=== PATIENT | male | born 1965 | race Caucasian/White ===

== ENCOUNTER 2023-02-03 06:07 | Emergency (ER) | payer MEDICAID ==
[~2023-02-03 06:07] MED LIST: HYDROmorphone 2 MG/ML Syringe IVPUSH ONE
[2023-02-03 06:21] LABS: BASOPHILS ABSOLUTE AUTO 0.05 K/uL (0.02-0.10); BASOPHILS PERCENT AUTO 0.4 % (0.0-0.5); EOSINOPHILS ABSOLUTE AUTO 0.42 K/uL (0.04-0.40); EOSINOPHILS PERCENT AUTO 3.4 % (1.0-5.0); HEMATOCRIT 44.1 % (40.0-54.0); LYMPHOCYTES ABSOLUTE AUTO 4.92 K/uL (1.50-4.00); MEAN CORPUSCULAR VOLUME 91 fL (76-96); MEAN PLATELET VOLUME 10.9 fL (6.0-10.0); MONOCYTES PERCENT AUTO 8.1 % (3.0-10.0); NEUTROPHILS ABSOLUTE AUTO 5.91 K/uL (2.00-7.50); NEUTROPHILS PERCENT AUTO 48.1 % (45.0-70.0); PLATELET COUNT,PLT 284 K/uL (150-400); RED BLOOD CELL COUNT 4.84 M/uL (4.50-6.50); RED CELL DISTRIBUTION WIDTH 14.3 % (11.0-16.0); WHITE BLOOD CELL COUNT,WBC 12.3 K/uL (4.0-11.0)
[2023-02-03] MEDS ORDERED: Sodium Chloride 0.9% 1,000 ML IV ONE (06:23)
[2023-02-03] MEDS ORDERED: Nitroglycerin 0.4 MG Tab.SL SL ONE (06:40)
[2023-02-03 06:50] LABS: INR 0.9 (1.0-3.5); PTT,PARTIAL THROMBOPLSTIN TIME 26.2 SECONDS (24.4-33.2)
[2023-02-03 06:51] LABS: PROTHROMBIN TIME 9.2 sec (9.0-11.5)
[2023-02-03 07:00] LABS: A/G RATIO 0.9 (0.8-2.0); ALBUMIN 3.6 g/dL (3.4-5.0); ANION GAP 15.4 mmol/L (5.0-15.0); BILIRUBIN TOTAL 0.2 mg/dL (0.0-1.0); BUN/CREATININE RATIO 27.5 (6-25); CALCIUM 8.1 mg/dL (8.5-10.1); CARBON DIOXIDE,CO2 22.6 mmol/L (21.0-32.0); CREATININE 0.8 mg/dL (0.70-1.30); EST CRCL DRUG DOSING (CG) 107.2 mL/min; PROTEIN TOTAL,TP 7.4 g/dL (6.4-8.2)
[2023-02-03] MEDS ORDERED: HYDROmorphone 2 MG/ML Syringe IVPUSH ONE (07:23)
[2023-02-03] MEDS ORDERED: Nitroglycerin/D5W 25 MG/250 ML BOTTLE IV SCH (10:00)
== END 2023-02-03 10:17 | disposition left against medical advice (07) ==
LOC: LB.ED 06:07
DX: I21.4 Non-ST elevation (NSTEMI) myocardial infarction (principal)
CPT/HCPCS: 36415; 71045; 80053; 84484; 85025; 85610; 85730; 93005; 96361; 96374; 96376; 99285-25; A0425; A0429; J1170; J7030

== ENCOUNTER 2024-11-26 08:00 | Emergency (ER) | payer MEDICAID ==
[2024-11-26] MEDS ORDERED: Sodium Chloride 0.9% 10 ML Syringe FLUSH PRN (08:10)
[2024-11-26] MEDS: Heparin Sodium 5,000 Units/ML Vial IVPUSH ONE (08:36)
[2024-11-26 08:45] LABS: BASOPHILS ABSOLUTE AUTO 0.03 K/uL (0.02-0.10); BASOPHILS PERCENT AUTO 0.3 % (0.0-0.5); EOSINOPHILS ABSOLUTE AUTO 0.29 K/uL (0.04-0.40); EOSINOPHILS PERCENT AUTO 2.9 % (1.0-5.0); LYMPHOCYTES ABSOLUTE AUTO 4.07 K/uL (1.50-4.00); LYMPHOCYTES PERCENT AUTO 40.6 % (20.0-40.0); MEAN PLATELET VOLUME 9.9 fL (6.0-10.0); MONOCYTES ABSOLUTE AUTO 0.83 K/uL (0.20-0.80); MONOCYTES PERCENT AUTO 8.3 % (3.0-10.0); NEUTROPHILS ABSOLUTE AUTO 4.80 K/uL (2.00-7.50); NEUTROPHILS PERCENT AUTO 47.9 % (45.0-70.0); PLATELET COUNT,PLT 225 K/uL (150-400); RED BLOOD CELL COUNT 4.53 M/uL (4.50-6.50); RED CELL DISTRIBUTION WIDTH 13.6 % (11.0-16.0); WHITE BLOOD CELL COUNT,WBC 10.0 K/uL (4.0-11.0)
[2024-11-26] MEDS: LORazepam 2 MG/ML SDV IVPUSH ONE (08:45)
[2024-11-26] MEDS: LORazepam 2 MG/ML SDV ONE (08:49)
[2024-11-26 09:11] LABS: INR 1.0 (1.0-3.5); PTT,PARTIAL THROMBOPLSTIN TIME 24.1 SECONDS (24.4-33.2)
[2024-11-26 09:17] LABS: A/G RATIO 0.9 (0.8-2.0); ALANINE AMINOTRANSFERASE,ALT 34.0 U/L (12-78); ASPARTATE AMNIOTRANSFERASE,AST 26.0 U/L (15-37); BILIRUBIN TOTAL 0.8 mg/dL (0.0-1.0); BLOOD UREA NITROGEN,BUN 27.0 mg/dL (8-26); CARBON DIOXIDE,CO2 25.6 mmol/L (21.0-32.0); CHLORIDE,CL 105.0 mmol/L (98-107); CREATININE 1.32 mg/dL (0.70-1.30); EST CRCL DRUG DOSING (CG) 63.38 mL/min; ESTIMATED GFR 62.0 mL/min (>60); GLUCOSE RANDOM 136.0 mg/dL (74-100); POTASSIUM,K 4.2 mmol/L (3.5-5.1); PROTEIN TOTAL,TP 7.3 g/dL (6.4-8.2); SODIUM,NA 141.0 mmol/L (136-145)
[2024-11-26 09:18] LABS: TROPONIN I HIGH SENSITIVITY 81.6 pg/ml (<=60.4)
== END 2024-11-26 09:30 ==
LOC: LB.ED 08:00
DX: I24.9 Acute ischemic heart disease, unspecified (principal); I10 Essential (primary) hypertension; I25.2 Old myocardial infarction; E78.00 Pure hypercholesterolemia, unspecified; F17.210 Nicotine dependence, cigarettes, uncomplicated
CPT/HCPCS: 36415; 71045; 80053; 84484; 85025; 85610; 85730; 93005; 93010; 96365; 96368; 96375; 99285; 99285-25; J1644; J2060; J2270; J2305; J7030

== ENCOUNTER 2024-12-19 10:23 | Emergency (ER) | payer MEDICAID ==
[~2024-12-19 10:23] MED LIST changes: -HYDROmorphone 2 MG/ML Syringe IVPUSH ONE; +Sodium Chloride 0.9% 10 ML Syringe FLUSH PRN
[2024-12-19 10:25] LABS: BASOPHILS ABSOLUTE AUTO 0.03 K/uL (0.02-0.10); BASOPHILS PERCENT AUTO 0.4 % (0.0-0.5); EOSINOPHILS ABSOLUTE AUTO 0.33 K/uL (0.04-0.40); EOSINOPHILS PERCENT AUTO 4.4 % (1.0-5.0); LYMPHOCYTES ABSOLUTE AUTO 2.70 K/uL (1.50-4.00); LYMPHOCYTES PERCENT AUTO 35.9 % (20.0-40.0); MEAN PLATELET VOLUME 9.6 fL (6.0-10.0); MONOCYTES ABSOLUTE AUTO 0.71 K/uL (0.20-0.80); MONOCYTES PERCENT AUTO 9.4 % (3.0-10.0); NEUTROPHILS ABSOLUTE AUTO 3.75 K/uL (2.00-7.50); NEUTROPHILS PERCENT AUTO 49.9 % (45.0-70.0); PLATELET COUNT,PLT 231 K/uL (150-400); RED BLOOD CELL COUNT 4.68 M/uL (4.50-6.50); RED CELL DISTRIBUTION WIDTH 14.0 % (11.0-16.0); WHITE BLOOD CELL COUNT,WBC 7.5 K/uL (4.0-11.0)
[2024-12-19 10:44] LABS: A/G RATIO 0.9 (0.8-2.0); ALANINE AMINOTRANSFERASE,ALT 37.0 U/L (12-78); ASPARTATE AMNIOTRANSFERASE,AST 24.0 U/L (15-37); BILIRUBIN TOTAL 0.5 mg/dL (0.0-1.0); BLOOD UREA NITROGEN,BUN 13.0 mg/dL (8-26); CARBON DIOXIDE,CO2 25.5 mmol/L (21.0-32.0); CHLORIDE,CL 104.0 mmol/L (98-107); CREATININE 0.74 mg/dL (0.70-1.30); EST CRCL DRUG DOSING (CG) 113.06 mL/min; ESTIMATED GFR 104.0 mL/min (>60); GLUCOSE RANDOM 105.0 mg/dL (74-100); POTASSIUM,K 4.0 mmol/L (3.5-5.1); PROTEIN TOTAL,TP 7.4 g/dL (6.4-8.2); SODIUM,NA 139.0 mmol/L (136-145); TROPONIN I HIGH SENSITIVITY 17.0 pg/ml (<=60.4)
== END 2024-12-19 14:00 | disposition home or self-care (01) ==
LOC: LB.ED 10:23
DX: F41.9 Anxiety disorder, unspecified (principal); I10 Essential (primary) hypertension; E66.9 Obesity, unspecified; F17.200 Nicotine dependence, unspecified, uncomplicated; Z68.36 Body mass index [BMI] 36.0-36.9, adult
CPT/HCPCS: 36415; 80053; 84484; 85025; 93005; 99285; A0425; A0429; A9270